=== PATIENT | male | born 1975 | race Caucasian/White ===

== ENCOUNTER 2019-11-18 11:43 | Emergency (ER) | payer OTHER, SELFPAY ==
[2019-11-18 11:56] VITALS: BP 111/62; PULSE 62; RESP 16; O2SAT 99
--- NOTE | 2019-11-18 12:13 | ED.EAR ---
HPI - Ear Problem General Chief complaint: Ear Stated complaint: left ear clogged Time Seen by Provider: 11/18/19 11:57 Source: patient and RN notes reviewed Mode of arrival: ambulatory Limitations: no limitations History of Present Illness HPI Narrative: Patient presents today complaining of a clogged sensation to the left ear since yesterday. He has been swimming frequently. Reports some ringing in the ear as well. Denies pain or drainage. He tried peroxide and Benadryl without relief. MD Complaint: decreased hearing Related Data Home Medications Medication Instructions Recorded Confirmed No Home Medications 11/18/19 11/18/19 Allergies Allergy/AdvReac Type Severity Reaction Status Date / Time No Known Allergies Allergy Unverified 08/14/18 12:19 Review of Systems Review of Systems: Narrative: CONSTITUTIONAL: Denies body aches, fever, chills, or sweats. EYES: Denies visual changes, redness, or discharge. ENT: Denies rhinorrhea, congestion, sore throat, or otalgia.+ Left ear clogging and ringing CARDIOVASCULAR: Denies chest pain, palpitations, or edema. RESPIRATORY: Denies cough or dyspnea. GASTROINTESTINAL: Denies abdominal pain, nausea, vomiting, or diarrhea. GENITOURINARY: Denies dysuria or hematuria. SKIN: Denies rash, itching, or wounds. MUSCULOSKELETAL: Denies back pain, joint pain, or myalgia. NEUROLOGIC: Denies headache, numbness, tingling, or weakness. PSYCH: Denies depression or anxiety. PMFSH Comments At time of signature, I have reviewed and agree with nursing past medical, surgical, social and family history unless otherwise noted. Please see nursing chart for further information. There is no relevant family history pertinent to the presenting complaint Exam Narrative: Exam Narrative: GENERAL: Well-appearing, well-nourished, and in no acute distress. HEAD: Normocephalic, atraumatic. EYES: EOMI. No redness or drainage. Conjunctivae normal. ENT: Mucous membranes pink and moist. Nares clear. No rhinorrhea. Right TM and canal normal. Left ear with occlusive cerumen impaction. Throat normal. Uvula midline. NECK: Normal AROM. Supple. No lymphadenopathy. CHEST: No respiratory distress. EXTREMITIES: Normal range of motion. No edema. SKIN: Warm, dry, no rash. Capillary refill normal. Normal skin turgor. NEURO: No focal deficits. Alert and oriented x3. Gait steady. PSYCH: Normal affect. No signs of depression or anxiety. Course Vital Signs Vital signs: Vital Signs Pulse Rate 62 11/18/19 11:56 Respiratory Rate 16 11/18/19 11:56 Blood Pressure 111/62 11/18/19 11:56 Pulse Oximetry 99 11/18/19 11:56 Pulse Rate 62 11/18/19 11:56 Respiratory Rate 16 11/18/19 11:56 Blood Pressure 111/62 11/18/19 11:56 Pulse Oximetry 99 11/18/19 11:56 Reviewed Procedures Ear Wax Removal Left Ear: Ear Wax Removal Date: 11/18/19 Ear Wax Removal Time: 12:17 Cerumenolytic Used: other (Hydrogen peroxide) Results: Re-examined: cerumen removed completely TM Examination: TM(s) intact, normal appearance Ear Canal Exam: atraumatic Patient Tolerated Procedure: well Complications: no problems Technique: ear canal irrigated and ear canal curetted Medical Decision Making Differential Diagnosis Differential Diagnosis: Otitis media, otitis externa, ruptured TM, serous otitis, eustachian tube dysfunction, cerumen impaction Vital Signs Vital Signs: Vital Signs Pulse Rate 62 11/18/19 11:56 Respiratory Rate 16 11/18/19 11:56 Blood Pressure 111/62 11/18/19 11:56 Pulse Oximetry 99 11/18/19 11:56 Pulse Rate 62 11/18/19 11:56 Respiratory Rate 16 11/18/19 11:56 Blood Pressure 111/62 11/18/19 11:56 Pulse Oximetry 99 11/18/19 11:56 Critical Care Time Critical Care Time Critical Care Time: No Discharge Plan Discharge Clinical Impression: Impacted cerumen of left ear Patient Disposition: Home
--- NOTE | 2019-11-18 12:16 | PC.NURSE ---
ear irrigation set up in .
== END 2019-11-18 12:46 | disposition home or self-care (01) ==
PROVIDERS: Emergency Provider Nurse Practitioner; PCP Family Medicine
DX: H61.22 Impacted cerumen, left ear (principal)
CPT/HCPCS: 69210; 99212; G0463

== ENCOUNTER 2019-12-08 13:45 | Emergency (ER) | payer OTHER, SELFPAY ==
--- NOTE | 2019-12-08 13:47 | ED.SKABFB ---
HPI - Skin/Abscess/Foreign Bdy General Chief complaint: Skin/Abscess/Foreign Body Stated complaint: insect bites Time Seen by Provider: 12/08/19 13:56 Source: patient and RN notes reviewed Mode of arrival: ambulatory Limitations: no limitations History of Present Illness HPI narrative: 44-year-old male presents with concern for insect bites to his right knee. Reports he noticed a bug bites 3 days ago. Reports the redness got bigger later in the day that he sustained the bites. Reports they itch and are mildly tender when he presses hard on them . He denies any fever, malaise, nausea, vomiting. Denies any drainage from the bites. Reports he has been using hydrocortisone cream. Patient denies any ticks, did not pull any ticks off his body. Is not sure what bit him. MD complaint: insect bite/sting Related Data Home Medications Medication Instructions Recorded Confirmed fluticasone propionate [Flonase INTRANASAL 12/08/19 Allergy Relief] Allergies Allergy/AdvReac Type Severity Reaction Status Date / Time No Known Allergies Allergy Unverified 08/14/18 12:19 Review of Systems Review of Systems: Narrative: CONSTITUTIONAL: Denies malaise, chills, sweats, or fever. CARDIOVASCULAR: Denies chest pain, palpitations, or edema. RESPIRATORY: Denies cough or dyspnea. GASTROINTESTINAL: Denies abdominal pain, nausea, vomiting, diarrhea SKIN: Reports insect bites to the right knee MUSCULOSKELETAL: Denies myalgia. NEUROLOGIC: Denies headache. All systems reviewed & are unremarkable except as noted in HPI and below PMFSH Comments At time of signature, agree with nursing past medical, surgical, social and family history. There is no relevant family history pertinent to the presenting complaint Exam Narrative: Exam Narrative: GENERAL: Well-appearing, well-nourished, and in no acute distress. HEAD: Normocephalic, atraumatic. EYES: PERRLA, conjunctivae clear ENT: Nares clears. Mucous membranes moist. NECK: Supple. CHEST: No respiratory distress. Speaks in full sentences. HEART: Regular rate and rhythm. SKIN: Warm, dry. 2 circular areas of erythema with scattered papules within the erythema noted to the knee, the medial erythematous area is round, 8 x 8 cm, the lateral erythema is around 10 x 11 cm. Both areas have scabs in the center. NEURO: Alert and oriented x3. PSYCH: Normal mood and affect Course Course Emergency Course: Discussed with patient importance of following up with his primary care provider if he develops any symptoms such as fever, malaise, nausea, vomiting, headache, if the areas get worse or do not improve. Patient is aware of diagnosis, understands and agrees to treatment plan. Anticipatory guidance given. Patient agrees to follow-up as directed and is aware of reasons to seek care at the emergency department. Portions of this record may have been created with voice recognition software Vital Signs Vital signs: Vital Signs Temperature 98.6 F 12/08/19 13:52 Pulse Rate 67 12/08/19 13:52 Respiratory Rate 16 12/08/19 13:52 Blood Pressure 126/61 12/08/19 13:52 Pulse Oximetry 99 12/08/19 13:52 Temperature 98.6 F 12/08/19 13:52 Pulse Rate 67 12/08/19 13:52 Respiratory Rate 16 12/08/19 13:52 Blood Pressure 126/61 12/08/19 13:52 Pulse Oximetry 99 12/08/19 13:52 Reviewed. MDM - Skin/Abscess/Foreign Bdy MDM Narrative Medical decision making narrative: Does not appear at this time to be erythema multiforme, bullous, SJS, TEN; no evidence at this time to suggest RMSF, endocarditis or Lyme disease; patient looks well, nontoxic and is tolerating oral intake; no neurologic signs or symptoms; no headache, photophobia or neck pain; afebrile; appropriate for initial outpatient treatment; discussed the importance of follow-up, patient agrees; question, viral exanthema, contact dermatitis, allergic dermatitis, eczema, urticaria, insect bites, Lyme disease, Baylis fever. No s
[2019-12-08 13:52] VITALS: BP 126/61; PULSE 67; RESP 16; TEMP 37; O2SAT 99
== END 2019-12-08 14:12 | disposition home or self-care (01) ==
PROVIDERS: Emergency Provider Nurse Practitioner; PCP Family Medicine
DX: S80.261A Insect bite (nonvenomous), right knee, initial encounter (principal); W57.XXXA Bitten or stung by nonvenomous insect and other nonvenomous arthropods, initial encounter
CPT/HCPCS: 99213; G0463

== ENCOUNTER 2022-05-09 16:56 | Emergency (ER) | payer OTHER, SELFPAY ==
--- NOTE | 2022-05-09 16:59 | ED.URI ---
HPI - URI/Sore Throat General Chief Complaint: Upper Respiratory Infection Stated Complaint: SORE THROAT/RUNNY NOSE/COUGH Time Seen by Provider: 05/09/22 16:59 Source: patient and RN notes reviewed History of Present Illness HPI Narrative: Patient is a 47-year-old male who presents to urgent care with complaints of sore throat, runny nose and cough. Patient states it started yesterday and he has been drinking hot tea. Denies any ill exposures, fever, nausea or vomiting. No other acute complaints. No acute distress noted. Patient aware of the plan of care. At the time of my signature, I reviewed and agree with the nursing past medical, surgical, social, and family history. There is no relevant family history pertinent to the patient complaint. Related Data Home Medications Medication Instructions Recorded Confirmed dextroamphetamine-amphetamine 5 mg 5 mg PO DAILY 05/09/22 05/09/22 tablet Allergies Allergy/AdvReac Type Severity Reaction Status Date / Time No Known Allergies Allergy Unverified 08/14/18 12:19 Review of Systems Review of Systems: CONSTITUTIONAL: Denies fever, chills, or sweats. EYES: Denies visual changes, redness, or discharge. ENT: Reports of sore throat, postnasal drainage CARDIOVASCULAR: Denies chest pain, palpitations, or edema. RESPIRATORY: Reports of cough without dyspnea GASTROINTESTINAL: Denies abdominal pain, nausea, vomiting, or diarrhea. GENITOURINARY: Denies dysuria or hematuria. SKIN: Denies rash or itching. MUSCULOSKELETAL: Denies back pain, joint pain, or myalgia. NEUROLOGIC: Denies headache, numbness, or weakness. All other systems reviewed are negative, except as documented in HPI. PMFSH Comments At the time of my signature, I reviewed and agree with the nursing past medical, surgical, social, and family history. There is no relevant family history pertinent to the patient complaint. Exam Narrative: GENERAL: This is a well-nourished, well-developed patient, in no apparent distress. HEAD: normocephalic, atraumatic. EYES: PERRL. Sclera clear/white. Vision is grossly intact. EARS: External ears normal, auditory canals clear and without drainage, TMs normal without perforation. Hearing grossly intact. NOSE: External nose normal with no obvious nasal discharge, nares without redness, clear rhinorrhea THROAT: Mucous membranes moist, posterior pharynx clear. Moderate postnasal drainage NECK: Neck supple CARDIOVASCULAR: Regular rate and rhythm without murmurs, gallops, or rubs. RESPIRATORY: Clear to auscultation. Breath sounds equal bilaterally. No wheezes, rales, or rhonchi. SKIN: warm, intact with no suspicious lesions or rash, good texture and turgor. NEURO: awake, alert, and oriented to person, place and time. There were no obvious focal neurologic abnormalities. EXTREMITIES: No clubbing, cyanosis, or edema. Course Course Level of Care: Express Care Visit Vital Signs Vital signs: Vital Signs Temperature 98.6 F 05/09/22 17:06 Pulse Rate 76 05/09/22 17:06 Respiratory Rate 16 05/09/22 17:06 Blood Pressure 107/66 05/09/22 17:06 Pulse Oximetry 99 05/09/22 17:06 Temperature 98.6 F 05/09/22 17:06 Pulse Rate 76 05/09/22 17:06 Respiratory Rate 16 05/09/22 17:06 Blood Pressure 107/66 05/09/22 17:06 Pulse Oximetry 99 05/09/22 17:06 Reviewed MDM - URI/Sore Throat MDM Narrative Medical decision making narrative: Advised patient to use a daily antihistamine such as Claritin or Zyrtec. Use Flonase nasal spray and 25 mg of Benadryl prior to bedtime. Complete the steroid regimen as prescribed. Increase water intake. Use a humidifier at night. Follow-up with your PCP within 2-5 days or for worsening symptoms or failure to improve. Differential Diagnosis Differential diagnosis: Likely upper respiratory infection, croup, otitis media, sinusitis, viral infection, bronchitis, influenza and pharyngitis Critical Care Time Critical Care Time Cri
[2022-05-09 17:06] VITALS: BP 107/66; PULSE 76; RESP 16; TEMP 37; O2SAT 99
== END 2022-05-09 17:21 | disposition home or self-care (01) ==
PROVIDERS: Emergency Provider Nurse Practitioner Family
DX: J00 Acute nasopharyngitis [common cold] (principal)
CPT/HCPCS: 99213; G0463

== ENCOUNTER → 2022-08-20 08:04 | Outpatient (CLI) | payer OTHER, SELFPAY ==
--- NOTE | ~2022-08-20 | MR_ITS ---
MRI of the right shoulder Technique: Axial proton-density fat-sat images, coronal proton density fat-sat and T2 fat-sat images, and sagittal T1-weighted and T2 fat-sat images were acquired. Clinical History: Pain COMPARISON: 06/20/2019 Findings: There is minimal AC joint degenerative change. Coracoclavicular, coracoacromial, and coraco humeral ligaments are intact. There is low-grade partial-thickness articular surface tearing at the distal supraspinatus tendon ins ertion, with the area of tear measuring approximately 1.6 cm in AP dimension, and 0.3 cm in transvers e dimension. No high-grade partial or full-thickness tear is seen. Infraspinatus tendon is intact. Bedolla bscapularis tendon is intact with moderate to severe tendinosis. Tendon of the long head of the bicep s is intact. No definite labral tear identified. Inferior glenohumeral ligament is intact. No degenerative change or effusion of the glenohumeral join t. No fluid distention of the subacromial/subdeltoid bursa. No muscle atrophy or edema. Impression: Low-grade partial-thickness articular surface tear at the distal supraspinatus tendon insertion, as d etailed above. Reviewed, dictated and finalized at location . [facility] Impression: Low-grade partial-thickness articular surface tear at the distal supraspinatus tendon insertion, as detailed above.
== END ==
PROVIDERS: PCP Family Medicine; Visit Provider Nurse Practitioner Family
DX: M75.111 Incomplete rotator cuff tear or rupture of right shoulder, not specified as traumatic (principal)
CPT/HCPCS: 73221

== ENCOUNTER → 2022-12-12 13:38 | Outpatient (CLI) | payer OTHER, SELFPAY ==
--- NOTE | ~2022-12-12 | XR_ITS ---
EXAMINATION: XR foot RT min 3V DATE: 12/12/2022 13:50 INDICATION: Right foot injury and pain at the fifth metatarsal. TECHNIQUE: 4 views of right foot were obtained. COMPARISON: None. FINDINGS: Bone alignment is normal. No fracture. There is mild osteoarthritis of first metatarsophala ngeal joint. IMPRESSION: 1. No fracture. Reviewed, dictated and finalized at location A. IMPRESSION: 1. No fracture.
== END ==
PROVIDERS: PCP Family Medicine; Visit Provider Nurse Practitioner Family
DX: S99.921A Unspecified injury of right foot, initial encounter (principal); X58.XXXA Exposure to other specified factors, initial encounter
CPT/HCPCS: 73630

== ENCOUNTER 2023-02-04 10:39 | Emergency (ER) | payer OTHER, SELFPAY ==
[2023-02-04 10:49] VITALS: BP 125/73; PULSE 91; RESP 16; TEMP 36.3; O2SAT 100
--- NOTE | 2023-02-04 10:51 | ED.UPPEXIN ---
HPI - Extremity Injury (Upper) General Chief Complaint: Extremity Injury, Upper Stated Complaint: FINGER PAIN Time Seen by Provider: 02/04/23 10:51 Source: patient Mode of arrival: ambulatory Limitations: no limitations History of Present Illness HPI narrative: 47 yo M presents with c/o pain to R index finger for the past few days. Denies injury. States painful bump . just wanted to make sure was not anything emergent . Painful with movement. All systems reviewed and negative except as noted above. Related Data Home Medications Medication Instructions Recorded Confirmed diphenhydramine HCl 25 mg capsule 25 mg PO QHS PRN allergies 07/21/22 02/04/23 (Benadryl) fluticasone propionate 50 2 spray intranasal DAILY 07/21/22 02/04/23 mcg/actuation nasal spray,suspension dextroamphetamine-amphetamine 5 mg 5 mg PO DAILY PRN attention 02/04/23 02/04/23 tablet deficit disorder Allergies Allergy/AdvReac Type Severity Reaction Status Date / Time No Known Allergies Allergy Verified 02/04/23 10:48 Review of Systems Review of Systems: CONSTITUTIONAL: Denies fever, chills, or sweats. EYES: Denies visual changes, redness, or discharge. ENT: Denies rhinorrhea, congestion, sore throat, or otalgia. CARDIOVASCULAR: Denies chest pain, palpitations, or edema. RESPIRATORY: Denies cough or dyspnea. GASTROINTESTINAL: Denies abdominal pain, nausea, vomiting, or diarrhea. GENITOURINARY: Denies dysuria or hematuria. SKIN: Denies rash or itching. MUSCULOSKELETAL: Denies back pain, joint pain, or myalgia. reports painful bump to R index finger. NEUROLOGIC: Denies headache, numbness, or weakness. PSYCHIATRIC: Denies anxiety or depression. All other systems reviewed are negative, except as documented in HPI. 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 Chronic right shoulder pain Environmental allergies Right foot injury Rotator cuff impingement syndrome Rotator cuff tear Wears glasses Surgical History Surgical History H/O cornea transplant (~1992) H/O vasectomy (~2007) History of repair of ACL (~2005) Family History Family History Mother Asthma Grandparent Heart disease Cerebrovascular accident Social History Social History Smoking status: Never smoker Alcohol intake: current Drinks per week: 2 Substance use: never Substance use type: does not use Lack of Transportation: No Lack of Food: Never True Current Housing: I Have Housing Concerned About Future Housing: No Difficulty Paying Gas/Electric Bills: No Difficulty Paying for Meds: No Currently Unemployed: No Education: Master's Degree or Higher Difficulty w/ Childcare or Family Care: No Living arrangements: with family Occupation/Education: occupation Additional occupation/education comments: [employer]er Gender identity (if verbalized by the patient): Male Sexual Orientation (if Verbalized by the Patient): Straight or Heterosexual Spiritual care concerns: No Comments At time of signature, agree with nursing past medical, surgical, social and family history. There is no relevant family history pertinent to the presenting complaint. Exam Narrative: GENERAL: This is a well-nourished, well-developed patient, in no apparent distress. HEAD: normocephalic, atraumatic. EYES: PERRL. Sclera clear/white. Vision is grossly intact. EARS: External ears normal NOSE: External nose normal NECK: Neck supple, non-tender without lymphadenopathy, masses or thyromegaly. CARDIOVASCULAR: Regular rate and rhythm without murmurs, gallops, or rubs. RESPIRATORY: Clear to auscultation. Breath sounds equal bilaterally. No wheezes, rales, or rhonchi. SKIN: warm,
== END 2023-02-04 11:03 | disposition home or self-care (01) ==
PROVIDERS: Emergency Provider Nurse Practitioner Family; PCP Family Medicine
DX: M15.1 Heberden's nodes (with arthropathy) (principal); F98.8 Other specified behavioral and emotional disorders with onset usually occurring in childhood and adolescence
CPT/HCPCS: 99212; G0463

== ENCOUNTER 2023-04-20 09:47 | Outpatient (CLI) | payer OTHER, SELFPAY ==
[2023-04-20 11:59] LABS: Basophils Percent Auto 0.5 % (0.2-1.2); Eosinophils Absolute Auto 0.1 K/mm3 (0-0.3); Eosinophils Percent Auto 1.2 % (0-4.4); Hematocrit 41.1 % (42.0-52.0); Hemoglobin 13.8 g/dL (14.0-18.0); Immature Granulocyte Absolute 0.01 K/mm3 (0.00-0.031); Immature Granulocyte Percent A 0.2 % (0-0.5); Lymphocytes Absolute Auto 2.32 K/mm3 (0.9-3.2); Lymphocytes Percent Auto 41.3 % (18.3-44.2); Mean Corpuscular HGB Conc 33.6 g/dl (32-36); Mean Corpuscular Hemoglobin 31.7 pg (26-34); Mean Corpuscular Volume 94.5 fl (80-100); Mean Platelet Volume 8.9 fl (7.4-10.4); Monocytes Absolute Auto 0.7 K/mm3 (0.1-0.6); Monocytes Percent Auto 12.8 % (2.6-8.5); Neutrophils Absolute Auto 2.5 K/mm3 (1.3-6.7); Platelet Count Result 305 k/mm3 (150-375); Red Blood Count 4.35 M/mm3 (4.6-6.20); Red Cell Distribution Width 12.4 % (11.5-14.5); White Blood Count 5.6 K/mm3 (4.5-10.0)
[2023-04-20 12:35] LABS: Alanine Aminotransferase 28 U/L (6-50); Albumin Level 4.6 g/dL (3.5-5.1); Alkaline Phosphatase 56 U/L (38-126); Anion Gap 5 mmol/L (8-16); Aspartate Amino Transferase 44 U/L (17-59); Bilirubin,Total 0.7 mg/dL (0.2-1.3); Blood Urea Nitrogen 19 mg/dL (9-20); Calcium 9.7 mg/dL (8.4-10.2); Carbon Dioxide 31 mmol/L (22-30); Chloride 100 mmol/L (98-107); Cholesterol 249 mg/dL (0-200); Estimated Glomerular Filt Rate > 60; Glucose 89 mg/dL (65-110); HDL Direct 43 mg/dL; Potassium 5.1 mmol/L (3.4-5.0); Sodium 136 mmol/L (137-145); Triglycerides 142 mg/dL (<150)
[2023-04-20 12:51] LABS: LDL Cholesterol Direct 147 mg/dL
== END 2023-04-20 09:48 | disposition home or self-care (01) ==
LOC: ANHGOSHLAB 09:49
PROVIDERS: PCP Family Medicine; Visit Provider Family Medicine
DX: F98.8 Other specified behavioral and emotional disorders with onset usually occurring in childhood and adolescence (principal); Z13.29 Encounter for screening for other suspected endocrine disorder; Z00.00 Encounter for general adult medical examination without abnormal findings; E53.8 Deficiency of other specified B group vitamins; E55.9 Vitamin D deficiency, unspecified; Z79.899 Other long term (current) drug therapy; Z13.220 Encounter for screening for lipoid disorders
CPT/HCPCS: 36415; 80053; 80061; 82306; 82607; 84443; 85025

== ENCOUNTER 2023-05-18 07:00 | Outpatient (NON) | payer OTHER, SELFPAY | END 2023-05-18 07:01 | disposition home or self-care (01) | PROVIDERS: PCP Family Medicine; Visit Provider Internal Medicine Gastroenterology | DX: Z12.11 Encounter for screening for malignant neoplasm of colon (principal); K63.5 Polyp of colon | CPT/HCPCS: 88305 ==

== ENCOUNTER 2023-05-18 08:56 | Day surgery (SDC) | payer OTHER, SELFPAY ==
[2023-05-01 13:57] VITALS: BMI 27.5
--- NOTE | 2023-05-17 17:04 | WPDANESEPPF ---
Anes - Initial Pre Proc Eval Procedure: Operation Date: 05/18/23 11:30 Proposed Procedures p Screening Colonoscopy - Sebastián Chavez MD Date/Time: 05/17/23 17:04 Surgeon: Sebastián Chavez MD Pre Op Diagnosis: Neoplasm Screening Patient Data Age: 48 Gender: M Height: 1.65 m Weight: 75 kg Allergies Allergy/AdvReac Type Severity Reaction Status Date / Time No Known Allergies Allergy Verified 05/18/23 10:01 Home Medications Medication Instructions Recorded Confirmed Type diphenhydramine HCl 25 mg capsule 25 mg PO QHS PRN allergies 07/21/22 05/18/23 History (Benadryl) fluticasone propionate 50 2 spray intranasal DAILY 07/21/22 05/18/23 History mcg/actuation nasal spray,suspension dextroamphetamine-amphetamine 5 mg 5 mg PO DAILY PRN attention 04/19/23 05/18/23 Rx tablet deficit disorder #30 tabs Patient hx anesthesia problems: none Family hx anesthesia problems: none Results Review: All pre-operative results and documents have been reviewed as part of the pre-operative evaluation. [facility] Past Medical History Medical History (Updated 05/18/23 @ 10:53 by Sebastián Chavez MD) Attention deficit disorder (ADD) without hyperactivity Chronic right shoulder pain Colon cancer screening Environmental allergies Rotator cuff impingement syndrome Rotator cuff tear Wears glasses Surgical History Surgical History H/O cornea transplant (~1992) Left H/O vasectomy (~2007) History of repair of ACL (~2005) Right Family History Family History Mother Asthma Grandparent Heart disease Cerebrovascular accident Social History Social History Smoking status: Never smoker Alcohol intake: current Drinks per week: 2 Alcohol use details: 2-3 beers a week Substance use: never Substance use type: does not use Lack of Transportation: No Lack of Food: Never True Current Housing: I Have Housing Concerned About Future Housing: No Difficulty Paying Gas/Electric Bills: No Difficulty Paying for Meds: No Currently Unemployed: No Education: Master's Degree or Higher Difficulty w/ Childcare or Family Care: No Living arrangements: with family Occupation/Education: occupation Additional occupation/education comments: [employer] Gender identity (if verbalized by the patient): Male Sexual Orientation (if Verbalized by the Patient): Straight or Heterosexual Spiritual care concerns: No Anes - Eval Final PreProcedure Day of Procedure 05/17/23 17:04 Patient weight: overweight Heart: regular rate and rhythm Lungs: clear to auscultation Airway: Mallampati scale class II Neurological: alert and oriented Last oral intake: >/= 8 hours ASA classification: II Emergent: no Anesthetic plan: proceed Anesthesia type and monitoring: general GIVS and standard monitoring Results Review: All pre-operative results and documents have been reviewed as part of the pre-operative evaluation. Informed Consent: The patient's anesthetic plan and its attendant risks and benefits were discussed with the patient/family/POA. Questions were solicited and answers provided to the satisfaction of the patient/family/POA.
[2023-05-18 09:59] VITALS: BP 166/98; PULSE 68; RESP 18; TEMP 36.7; O2SAT 100
[2023-05-18] MEDS: LACTATED RINGERS 1,000 ML 150 ML IV CONT (10:07)
--- NOTE | 2023-05-18 10:52 | PM.HPGS ---
History of Present Illness History of Present Illness Consent: Risks, benefits, and alternatives have been discussed and questions answered. Patient agrees to proceed with procedure. Chief complaint: Neoplasm Screening Narrative: Nomi Murillo is a 48 year old male here for first screening colonoscopy Review of Systems Constitutional: Constitutional: Denies headache(s) and Denies weakness Eyes: Eyes: Denies blurry vision ENT: Reports Normal hearing present, Denies headache(s) and Denies neck pain Cardiovascular: Cardiovascular: Denies chest pain and Denies dyspnea Respiratory: Respiratory: Denies dyspnea Gastrointestinal: Gastrointestinal: Reports no additional gastrointestinal complaints Genitourinary: Genitourinary: Denies dysuria Musculoskeletal: Musculoskeletal: Denies neck pain Integumentary/Breasts: Skin/Breast: Denies dry skin Neurologic: Reports Normal hearing present, Denies headache(s) and Denies weakness Psychiatric: Psychiatric: Denies anxiety Endocrine: Endocrine: Denies change in body appearance Hematologic/Lymphatic: Hematologic/Lymphatic: Denies easy bleeding Allergic/Immunologic: Allergic/Immunologic: Denies urticaria PMF Past Medical History Medical History (Updated 05/18/23 @ 10:53 by Sebastián Chavez MD) Attention deficit disorder (ADD) without hyperactivity Chronic right shoulder pain Colon cancer screening Environmental allergies Rotator cuff impingement syndrome Rotator cuff tear Wears glasses Surgical History Surgical History H/O cornea transplant (~1992) Left H/O vasectomy (~2007) History of repair of ACL (~2005) Right Family History Family History Mother Asthma Grandparent Heart disease Cerebrovascular accident Social History Social History Smoking status: Never smoker Alcohol intake: current Drinks per week: 2 Alcohol use details: 2-3 beers a week Substance use: never Substance use type: does not use Lack of Transportation: No Lack of Food: Never True Current Housing: I Have Housing Concerned About Future Housing: No Difficulty Paying Gas/Electric Bills: No Difficulty Paying for Meds: No Currently Unemployed: No Education: Master's Degree or Higher Difficulty w/ Childcare or Family Care: No Living arrangements: with family Occupation/Education: occupation 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 Gender identity (if verbalized by the patient): Male Sexual Orientation (if Verbalized by the Patient): Straight or Heterosexual Spiritual care concerns: No Meds Home Medications and Allergies Home Medications Medication Instructions Recorded Confirmed Type diphenhydramine HCl 25 mg capsule 25 mg PO QHS PRN allergies 07/21/22 05/18/23 History (Benadryl) fluticasone propionate 50 2 spray intranasal DAILY 07/21/22 05/18/23 History mcg/actuation nasal spray,suspension dextroamphetamine-amphetamine 5 mg 5 mg PO DAILY PRN attention 04/19/23 05/18/23 Rx tablet deficit disorder #30 tabs Allergies Allergy/AdvReac Type Severity Reaction Status Date / Time No Known Allergies Allergy Verified 05/18/23 10:01 Vital Signs Vital Signs - 24 hr 05/18/23 09:59 Temperature 98.1 F Pulse Rate 68 Respiratory Rate 18 Blood Pressure 166/98 H Pulse Oximetry 100 Oxygen Delivery Room Air Exam Const: General: comfortable and no acute distress HENMT: Face/Nose/Sinus: Normal nares present Eyes: General: appearance normal, both eyes and all related structures Neck: Neck: no JVD Resp: Auscultation: clear to auscultation bilaterally Cardio: Rate: regular rate Rhythm: regular rhythm GI: Inspection: non-distended GI Palp: Yes Soft to palpation Skin: General skin exam: normal color
[2023-05-18 11:15] VITALS: BP 133/84; PULSE 73; RESP 16; O2SAT 100
[2023-05-18 11:20] VITALS: BP 134/90; PULSE 72; RESP 16; O2SAT 100
[2023-05-18 11:33] VITALS: BP 136/92; PULSE 70; RESP 16; O2SAT 100
--- NOTE | 2023-05-18 12:23 | WPDANESPN ---
Anes - Prog Note Post-Op Date/Time: 05/18/23 12:23 Cardiovascular status: normal Respiratory status: normal Airway patency: baseline Mental status: baseline Post-Op hydration status: normal Vital Signs: Last Vital Signs Temp 36.7 C 05/18/23 09:59 Pulse 70 05/18/23 11:33 Resp 16 05/18/23 11:33 BP 136/92 H 05/18/23 11:33 Pulse Ox 100 05/18/23 11:33 O2 Del Method Room Air 05/18/23 11:33 Pain Score (VAS): 0 I/O: Intake & Output 05/17/23 05/18/23 05/18/23 23:59 07:59 15:59 Intake Total 500 Balance 500 Post-procedural complaints: none Patient Feedback: Patient satisfied with anesthetic care. Other Findings: Patient vital signs back to baseline. Patient denies nausea and vomiting. Patient's pain under control. Patient OK for discharge.
== END 2023-05-18 11:37 | disposition home or self-care (01) ==
PROVIDERS: PCP Family Medicine; Visit Provider Internal Medicine Gastroenterology
PROC: 0DJD8ZZ Inspection of Lower Intestinal Tract, Via Natural or Artificial Opening Endoscopic (ICD-10-PCS; CPT 45378; principal; 2023-05-18 11:30)
DX: Z12.11 Encounter for screening for malignant neoplasm of colon (principal); K63.5 Polyp of colon; K57.30 Diverticulosis of large intestine without perforation or abscess without bleeding; K64.8 Other hemorrhoids
CPT/HCPCS: 45380